=== PATIENT | female | born 1960 | race Caucasian/White ===

== ENCOUNTER → 2016-08-06 | Outpatient (CLI) | payer MEDICARE ==
[~2016-08-06] MED LIST: ABILIFY5 MG PO; AMITIZA24 MCG PO; ATIVAN0.5 MG PO; BACTRIM DS 8001 TA1 PO; BELLADONNA1 TA1 PO; BENTYL10 MG PO; CARAFATE1 G1 PO; CLINDAMYCIN HC300 MG PO; COMPAZINE SR10 MG PO; Carafate1 GM PO; D-1000 185 MG-11 TAB PO; FLAGYL500 M1 PO; FLAGYL500 MG PO; GABAPENTIN300 MG PO; HYDROCODONE BIT1 T11 PO; IMDUR SA30 MG PO; KEFLEX500 MG PO; KEFTAB500 MG PO; LAMICTAL ODT100 MG MM; LAMICTAL200 MG PO; LATU60TA PO; LOPRESSOR25 MG PO; Lopressor25 MG PO; MACROBID100 MG PO; MAGNESIA C1.75 GM/30 PO; Miralax Powder255 GM PO; NORTRIPTYLINE H10 MG PO; PERI-COLACE 501 TAB PO; PRILOSEC OTC20 MG PO; PRILOSEC20 MG PO; PRISTIQ100 MG PO; PRISTIQ50 MG PO; PYRIDIUM200 MG PO; SIMVASTATIN40 MG PO; TOPAMAX50 MG PO; TRAMADOL HCL50 MG PO; TRAMADOL50 MG PO; VICODIN ES 7501 TAB PO; ZANTAC 150150 MG PO; Zestril,Prinivil5 MG PO
[2016-08-06 11:14] LABS: BASO % 0.3 % (0.0-1.0); EOS # 0.1 10*3/uL (0.0-0.4); EOS % 0.7 % (1.0-4.0); LYMPH # 2.8 10*3/uL (1.3-4.4); LYMPH % 38.4 % (27.0-41.0); MEAN CELL VOLUME 96.1 fl (81.0-99.0); MEAN CORPUSCULAR HGB 31.2 pg (27.0-31.0); MEAN CORPUSCULAR HGB CONC 32.4 g/dl (33.0-37.0); MEAN PLATELET VOLUME 10.2 fl (9.6-12.3); MONO # 0.7 10*3/uL (0.1-1.0); MONO % 8.9 % (3.0-9.0); NEUT # 3.7 10*3/uL (2.3-7.9); NEUT % 51.4 % (47.0-73.0); PLATELET COUNT AUTOMATED 286 10*3/uL (130-400); RED BLOOD COUNT 3.85 10*6/uL (4.10-5.10); RED CELL DISTRI WIDTH 13.1 % (0-14.5); WHITE BLOOD COUNT 7.3 10*3/uL (4.8-10.8)
[2016-08-06 11:25] LABS: ALBUMIN 3.3 gm/dl (3.1-4.5); ALKALINE PHOSPHATASE 65 U/L (45-117); BILIRUBIN, DIRECT 0.1 mg/dL (0.0-0.2); BILIRUBIN, TOTAL 0.4 mg/dl (0.2-1.0); BUN 11 mg/dl (7-24); CARBON DIOXIDE 26 mmol/L (21-32); CHLORIDE 109 mmol/L (98-107); CHOLESTEROL 152 mg/dL (<200); EST GLOM FILT AFRICAN AMERICAN > 60 ml/min; GLUCOSE 96 mg/dL (65-99); HDL CHOLESTEROL 44 mg/dl (40-60); LDL CHOLESTEROL 78 mg/dL (9-159); POTASSIUM 4.6 mmol/L (3.5-5.1); SGPT/ALT 15 U/L (12-78); SODIUM 144 mmol/L (136-145); T3 UPTAKE 30 % (31-39); THYROXINE (T4) TOTAL 8.7 ug/dl (4.8-13.9); TRIGLYCERIDES 152 mg/dl (<150); VLDL CHOLESTEROL 30 mg/dL (6-40)
[2016-08-06 11:31] LABS: SGOT/AST 15 IU/L (3-35)
== END | disposition home or self-care (01) ==
LOC: LAB 10:30
PROVIDERS: Psychiatry & Neurology Neurology
DX: Z79.899 Other long term (current) drug therapy (principal)

== ENCOUNTER → 2017-02-04 | Outpatient (CLI) | payer MEDICARE ==
[2017-02-04 14:24] LABS: HEMOGLOBIN 12.7 g/dl (12.0-16.0); MEAN CORPUSCULAR HGB 32.6 pg (27.0-31.0); MEAN CORPUSCULAR HGB CONC 32.6 g/dl (33.0-37.0); MEAN PLATELET VOLUME 10.6 fl (9.6-12.3); RED BLOOD COUNT 3.9 10*6/uL (4.10-5.10); RED CELL DISTRI WIDTH 13.2 % (0-14.5); WHITE BLOOD COUNT 6.8 10*3/uL (4.8-10.8)
[2017-02-04 14:56] LABS: ALBUMIN 3.3 gm/dl (3.1-4.5); BUN 8 mg/dl (7-24); CHLORIDE 107 mmol/L (98-107); CHOLESTEROL 154 mg/dL (<200); CREATININE 1.11 mg/dL (0.55-1.02); POTASSIUM 4.2 mmol/L (3.5-5.1); SGOT/AST 12 IU/L (3-35); SGPT/ALT 14 U/L (12-78); SODIUM 139 mmol/L (136-145); TOTAL PROTEIN 7.3 gm/dL (6.4-8.2); TRIGLYCERIDES 228 mg/dl (<150); VLDL CHOLESTEROL 46 mg/dL (6-40)
[2017-02-04 15:04] LABS: ALKALINE PHOSPHATASE 83 U/L (45-117); HDL CHOLESTEROL 34 mg/dl (40-60); LDL CHOLESTEROL 74 mg/dL (9-159)
[2017-02-04 15:14] LABS: VITAMIN D, 25-HYDROXY 15.2 ng/mL (30-100)
== END | disposition home or self-care (01) ==
LOC: LAB 13:32 → MAMMO 14:00
DX: Z12.31 Encounter for screening mammogram for malignant neoplasm of breast (principal); E55.9 Vitamin D deficiency, unspecified; I10 Essential (primary) hypertension; E66.09 Other obesity due to excess calories; D50.9 Iron deficiency anemia, unspecified; K28.9 Gastrojejunal ulcer, unspecified as acute or chronic, without hemorrhage or perforation; Z98.84 Bariatric surgery status

== ENCOUNTER → 2018-10-14 | Outpatient (CLI) | payer MEDICARE ==
[~2018-10-14] MED LIST changes: +ATORVASTATIN CA20 M1 PO; +LISINOPRIL10 M1 PO; +PROTONIX40 MG PO; +VITAMIN D32000 UNI1 PO
== END | disposition home or self-care (01) ==
LOC: RESCLI 01:17
DX: E78.5 Hyperlipidemia, unspecified (principal); I10 Essential (primary) hypertension; F32.9 Major depressive disorder, single episode, unspecified; E66.01 Morbid (severe) obesity due to excess calories; R10.84 Generalized abdominal pain; R73.03 Prediabetes; E55.9 Vitamin D deficiency, unspecified; E53.8 Deficiency of other specified B group vitamins; Z71.6 Tobacco abuse counseling; Z72.0 Tobacco use; Z79.899 Other long term (current) drug therapy

== ENCOUNTER → 2018-11-30 | Day surgery (SDC) | payer MEDICARE ==
[~2018-11-30] VITALS: Ht 167.6 cm; Wt 122.0 kg
--- NOTE | ~2018-11-30 | O ---
[place], [place] OPERATIVE NOTE NAME: ENIO MERCADO UNIT #: [id number] ROOM: DOCTOR: SERGIO HEDRICK MD BIRTHDATE: [birth year] DOS: 11/30/2018 INDICATIONS: The patient has presented with multiple medical issues among which is epigastric pain, gastric bypass and loss of 120 pound, abdominal pain. FAMILY HISTORY: CODEINE. PAST SURGICAL HISTORY: Cholecystectomy, gastric bypass. SOCIAL HISTORY: Smoker, nonalcohol consumer. PROCEDURE: Today's procedure part of investigation is panendoscopy plus biopsy and colonoscopy plus piecemeal polypectomy. PREMEDICATION: Propofol. SCOPE: Olympus forward-viewing gastroscope Q10 video. REPORT: After putting the patient in left lateral position and application of lubricant to the scope, the scope was introduced. Thereafter under direct visualization, advanced through the length of esophagus without difficulty. Esophagus, cervical, thoracic distally carefully examined. Gastric pouch was entered. Gastritis was seen. Evidence of gastric bypass and suture material which is silk in the gastric pouch was noticed, ulceration at the site of the bypass and seen. The patient's duodenal bulb, second and third part within normal limit and site of the anastomosis was photographed. Air was suctioned out. The patient was extubated, tolerated the procedure well. IMPRESSION: Anastomotic site ulcer, penetrated suture material into gastric pouch, gastritis, status post gastric bypass. PLAN AND DISCUSSION: We are going to proceed with colonoscopy. COLONOSCOPY Today's procedure part of investigation is colonoscopy plus piecemeal polypectomy. PREMEDICATION: Propofol. SCOPE: Olympus forward-viewing colonoscope 10L video. REPORT: After putting the patient in left lateral position and application of lubricant to the scope, the scope was introduced. Thereafter under direct visualization, advanced through the length of colon without difficulty. Colon mucosa and vascularity carefully examined. Base of the cecum explored. A polypoid lesion on the ileocecal valve with piecemeal polypectomy removed. Air was suctioned out. The patient was extubated, tolerated the procedure well. IMPRESSION: Sessile polyp at the ileocecal valve. [place], [place] OPERATIVE NOTE NAME: ENIO MERCADO UNIT #: [id number] ROOM: DOCTOR[facility] [birth year] PLAN: High fiber diet, Protonix 40 mg daily, clinical reassessment. SERGIO HEDRICK MD CM:OPRECORD:OPERATIVE NOTE 1100 [id number] SERGIO HEDRICK MD 12/02/18 1132 DANITA WILLIAMSON.LLR
--- NOTE | ~2018-11-30 | POSTOPNOTE ---
[place], [place] POSTOPERATIVE PROGRESS NOTE NAME: ENIO MERCADO UNIT #: [id number] ROOM: DOCTOR: SERGIO HEDRICK MD BIRTHDATE: [birth year] DATE: 11/30/18 GI NOTE PREOPERATIVE DIAGNOSIS: ABDOMINAL PAIN POSTOP LOWER GI PROC/FINDINGS: LOWER GI PROCEDURE/SURGERY: COLONIC SCREENING, PIECE MEAL POLYPECTOMY, SESSILE POLYP PREOPERATIVE DIAGNOSIS: ABDMOINAL PAIN POSTOP UPPER GI PROC/FINDINGS: ANASTAMOTIC SITE ULCER, PENENTRATED SUTURE MATERIAL INTO GASTRIC POUCH, GASTRITIS, STATUS POST GASTRIC BYPASS UPPER GI PROCEDURE/SURGERY: PANENDOSCOPY PLUS BIOPSY SERGIO HEDRICK MD CM:POSTOPN 1130 1132 SERGIO HEDRICK MD 12/02/18 1135 DANITA WILLIAMSON.R
[2018-11-30 08:40] VITALS: BP 125/76
[2018-11-30 10:26] VITALS: BP 115/65
[2018-11-30 10:40] VITALS: BP 145/89
[2018-11-30 10:56] VITALS: BP 145/80
== END | disposition home or self-care (01) ==
LOC: SDC 11-25 08:45
DX: K63.5 Polyp of colon (principal); K59.00 Constipation, unspecified; K21.9 Gastro-esophageal reflux disease without esophagitis; K29.50 Unspecified chronic gastritis without bleeding; I10 Essential (primary) hypertension; F41.9 Anxiety disorder, unspecified; F32.9 Major depressive disorder, single episode, unspecified; E78.5 Hyperlipidemia, unspecified; F17.210 Nicotine dependence, cigarettes, uncomplicated; E66.01 Morbid (severe) obesity due to excess calories; Z68.41 Body mass index [BMI] 40.0-44.9, adult; Z79.899 Other long term (current) drug therapy; Z88.5 Allergy status to narcotic agent; Z98.890 Other specified postprocedural states; Z98.84 Bariatric surgery status; Z82.49 Family history of ischemic heart disease and other diseases of the circulatory system; Z83.3 Family history of diabetes mellitus; Z80.9 Family history of malignant neoplasm, unspecified

== ENCOUNTER → 2019-01-10 | Outpatient (CLI) | payer MEDICARE ==
[2019-01-10 11:39] LABS: VITAMIN D, 25-HYDROXY 26.4 ng/mL (30-100)
== END | disposition home or self-care (01) ==
LOC: LAB 10:32 → CT 11:00
PROVIDERS: Internal Medicine Nephrology
DX: E55.9 Vitamin D deficiency, unspecified (principal); E53.8 Deficiency of other specified B group vitamins; R10.31 Right lower quadrant pain; R10.32 Left lower quadrant pain; R11.0 Nausea

== ENCOUNTER → 2019-01-12 | Outpatient (CLI) | payer MEDICARE ==
[~2019-01-12] MED LIST changes: +PREDNISONE10 MG PO; +PROAIR HFA8.5 GM INH; +VIBRAMYCIN100 MG PO
== END | disposition home or self-care (01) ==
LOC: RESCLI 01:52
DX: E55.9 Vitamin D deficiency, unspecified (principal); R10.84 Generalized abdominal pain; I10 Essential (primary) hypertension; E53.8 Deficiency of other specified B group vitamins; F32.9 Major depressive disorder, single episode, unspecified; E78.5 Hyperlipidemia, unspecified; R73.03 Prediabetes; E66.01 Morbid (severe) obesity due to excess calories; Z72.0 Tobacco use; Z71.6 Tobacco abuse counseling; Z79.899 Other long term (current) drug therapy

== ENCOUNTER 2019-03-11 16:08 | Emergency (ER) | payer MEDICARE ==
[~2019-03-11] VITALS: Ht 167.6 cm; Wt 122.5 kg
--- NOTE | ~2019-03-11 | EKG ---
[place], [place] ELECTROCARDIOGRAM REPORT NAME: ENIO MERCADO UNIT #: [id number] ROOM: DOCTOR: EPIPHANY DRAFT REPORT BIRTHDATE: [birth year] [facility] Test Date: 2019-03-11 Test Time: 16:55:11 Pat Name: ENIO MERCADO Department: ER Room: Gender: F Environmental Consultant: : 1960 Requested By: IMELDA BRIDGES PA-C Order Number: [id number] Reading MD: Kelsy Robles Measurements Intervals [place] Rate: 81 P: 24 WV: 153 QRS: -1 QRSD: 72 T: 52 QT: 361 QTc: 419 Interpretive Statements Sinus rhythm Abnormal R-wave progression, early transition Compared to ECG 08/16/2018 13:58:40 Myocardial infarct finding no longer present Electronically Signed On 03-12-2019 11:19:58 PST by Kelsy Robles CM:EKGRPT:ELECTROCARDIOGRAM REPORT [id number] IMELDA BRIDGES PA-C EPIPHMATTIE DRAFT REPORT IMELDA BRIDGES PA-C
[~2019-03-11 16:08] MED LIST changes: -PREDNISONE10 MG PO; -PROAIR HFA8.5 GM INH; -VIBRAMYCIN100 MG PO
[2019-03-11 16:11] VITALS: BP 126/84
[2019-03-11 16:57] LABS: BASO % 0.2 % (0.0-1.0); EOS # 0.1 10*3/uL (0.0-0.4); EOS % 0.8 % (1.0-4.0); HEMATOCRIT 39.5 % (37.0-47.0); LYMPH # 3.3 10*3/uL (1.3-4.4); LYMPH % 39.1 % (27.0-41.0); MEAN CELL VOLUME 101.5 fl (81.0-99.0); MEAN CORPUSCULAR HGB 33.4 pg (27.0-31.0); MEAN CORPUSCULAR HGB CONC 32.9 g/dl (33.0-37.0); MEAN PLATELET VOLUME 10.1 fl (9.6-12.3); MONO # 0.6 10*3/uL (0.1-1.0); MONO % 7.1 % (3.0-9.0); NEUT # 4.4 10*3/uL (2.3-7.9); NEUT % 52.6 % (47.0-73.0); PLATELET COUNT AUTOMATED 283 10*3/uL (130-400); RED BLOOD COUNT 3.89 10*6/uL (4.10-5.10); RED CELL DISTRI WIDTH 11.9 % (0-14.5); WHITE BLOOD COUNT 8.4 10*3/uL (4.8-10.8)
[2019-03-11 17:08] LABS: ACT PARTIAL THROMBO TIME 25.6 SECONDS (20.0-32.1); INTERNATIONAL NORM RATIO 0.9 (2.0-3.5)
[2019-03-11 17:16] LABS: ALBUMIN 3.2 gm/dl (3.1-4.5); ALKALINE PHOSPHATASE 80 U/L (45-117); BUN 12 mg/dl (7-24); CHLORIDE 110 mmol/L (98-107); CREATININE 1.28 mg/dL (0.55-1.02); POTASSIUM 3.8 mmol/L (3.5-5.1); SGOT/AST 12 IU/L (3-35); SGPT/ALT 20 U/L (12-78); SODIUM 139 mmol/L (136-145); TOTAL PROTEIN 7.1 gm/dL (6.4-8.2)
[2019-03-11 17:17] LABS: TROPONIN I < 0.015 ng/ml (<0.045)
[2019-03-11 17:31] LABS: BILIRUBIN 1+ (NEGATIVE); BLOOD NEGATIVE (NEGATIVE); CLARITY SL CLOUDY (CLEAR); COLOR YELLOW (YELLOW); GLUCOSE NEGATIVE (NEGATIVE); KETONE TRACE (NEGATIVE); LEUKO ESTERASE TRACE (NEGATIVE); NITRITE NEGATIVE (NEGATIVE); SPECIFIC GRAVITY >= 1.030 (1.005-1.030)
[2019-03-11] MEDS ORDERED: PREDNISONE10 MG PO (17:39)
[2019-03-11] MEDS ORDERED: VIBRAMYCIN100 MG PO (17:39)
[2019-03-11] MEDS ORDERED: PROAIR HFA8.5 GM INH (17:40)
[2019-03-11 18:11] LABS: BACTERIA 3+; EPITHELIAL CELLS TNTC
== END 2019-03-11 17:53 | disposition home or self-care (01) ==
LOC: ED 16:08
PROVIDERS: Physician Assistant
DX: J40 Bronchitis, not specified as acute or chronic (principal); I10 Essential (primary) hypertension; K21.9 Gastro-esophageal reflux disease without esophagitis; F17.200 Nicotine dependence, unspecified, uncomplicated; Z91.041 Radiographic dye allergy status; Z88.0 Allergy status to penicillin; Z88.5 Allergy status to narcotic agent; Z79.899 Other long term (current) drug therapy

== ENCOUNTER 2019-08-06 12:59 | Inpatient (IN) | payer MEDICARE ==
[~2019-08-06] VITALS: Ht 170.1 cm; Wt 117.7 kg
[~2019-08-06 12:59] MED LIST changes: +PREDNISONE10 MG PO; +PROAIR HFA8.5 GM INH; +VIBRAMYCIN100 MG PO
[2019-08-06 13:17] VITALS: BP 117/61
[2019-08-06 13:45] LABS: BASO % 0.3 % (0.0-1.0); HEMATOCRIT 40.7 % (37.0-47.0); LYMPH % 33.6 % (27.0-41.0); MEAN CELL VOLUME 96.9 fl (81.0-99.0); MEAN CORPUSCULAR HGB 32.6 pg (27.0-31.0); MEAN CORPUSCULAR HGB CONC 33.7 g/dl (33.0-37.0); MEAN PLATELET VOLUME 10.5 fl (9.6-12.3); MONO # 0.7 10*3/uL (0.1-1.0); MONO % 12.2 % (3.0-9.0); NEUT # 3.2 10*3/uL (2.3-7.9); NEUT % 53.6 % (47.0-73.0); PLATELET COUNT AUTOMATED 207 10*3/uL (130-400); WHITE BLOOD COUNT 5.9 10*3/uL (4.8-10.8)
[2019-08-06 13:55] LABS: ACT PARTIAL THROMBO TIME 27.8 SECONDS (20.0-32.1)
[2019-08-06 14:02] LABS: ALBUMIN 3.2 gm/dl (3.1-4.5); ALKALINE PHOSPHATASE 90 U/L (45-117); BUN 11 mg/dl (7-24); CHLORIDE 106 mmol/L (98-107); CREATININE 1.22 mg/dL (0.55-1.02); POTASSIUM 3.9 mmol/L (3.5-5.1); SGOT/AST 28 IU/L (3-35); SGPT/ALT 36 U/L (12-78); SODIUM 134 mmol/L (136-145)
[2019-08-06 14:07] LABS: TROPONIN I < 0.015 ng/ml (<0.045)
[2019-08-06 16:40] VITALS: BP 110/68
[2019-08-06 20:00] VITALS: BP 111/71
--- NOTE | 2019-08-06 21:40 | NUR ---
ORTHOS NEGATIVE, BUT PT IS DIZZY. PO TYLENOL GIVEN PER PRN ORDER FOR C/O HEAD & NECK PAIN RATED 8/10. WILL MONITOR EFFECTIVENESS. CALL LIGHT IN REACH.
--- NOTE | 2019-08-06 21:57 | NUR ---
AWARE OF ORTHOS NEGATIVE BUT PT C/O DIZZINESS. NO NEW ORDERS AT PRESENT TIME.
--- NOTE | 2019-08-06 22:57 | NUR ---
DEICER KIT ASSEMBLER CALLED QUESTIONING PATIENT'S ALLERGY TO IVP DYE. PER PT, REACTION TO IVP DYE WAS NAUSEA/DIZZINESS/SWEATING. DEICER KIT ASSEMBLER AWARE SOLUMEDROL & BENADRYL TO BE GIVEN PRIOR TO TEST SCHEDULED FOR 1100.
[2019-08-07] VITALS: BP 107/65
--- NOTE | 2019-08-07 04:47 | NUR ---
PT MEDICATED WITH PO TYLENOL FOR C/O PAIN IN NECK/SHOULDERS RATED 6/10. WILL MONITOR EFFECTIVENESS. CALL LIGHT IN REACH.
[2019-08-07 06:04] LABS: BASO % 0.6 % (0.0-1.0); HEMATOCRIT 41.4 % (37.0-47.0); LYMPH # 1.3 10*3/uL (1.3-4.4); LYMPH % 37.5 % (27.0-41.0); MEAN CELL VOLUME 97.4 fl (81.0-99.0); MEAN CORPUSCULAR HGB 32.7 pg (27.0-31.0); MEAN CORPUSCULAR HGB CONC 33.6 g/dl (33.0-37.0); MEAN PLATELET VOLUME 11.1 fl (9.6-12.3); MONO # 0.2 10*3/uL (0.1-1.0); MONO % 4.6 % (3.0-9.0); PLATELET COUNT AUTOMATED 201 10*3/uL (130-400); RED BLOOD COUNT 4.25 10*6/uL (4.10-5.10); RED CELL DISTRI WIDTH 12.8 % (0-14.5); WHITE BLOOD COUNT 3.5 10*3/uL (4.8-10.8)
[2019-08-07 06:13] LABS: CREATININE 1.27 mg/dL (0.55-1.02); POTASSIUM 4.1 mmol/L (3.5-5.1)
[2019-08-07 06:20] LABS: THYROID STIM HORMONE (HS) 0.61 uIU/ml (0.358-4.75)
[2019-08-07 06:34] LABS: ACT PARTIAL THROMBO TIME 30.5 SECONDS (20.0-32.1)
--- NOTE | 2019-08-07 07:20 | NUR ---
REPORT RECEIVED FROM OUTREACH ANALYST NURSE. PT SLEEPING AT THIS TIME. RESPIRATIONS EASY AND UNLABORED. CALL LIGHT IN REACH
--- NOTE | 2019-08-07 09:00 | NUR ---
Machinist Class B in to talk to patient. Patient states lives at home with daughter. There are none steps in the home. Physician: [facility] Home health services: none Patient's level of ADLs: INDEPENDENT Patient has working utilities: all working DME: none Follow-up physician's appointment after d/c: will be made by [facility] nurse director upon discharge Does patient want to access PORTAL?: no Discharge plan discussed with patient, she states she lives at home with her daughter and daughter's family, she states she is independent in adls and ambulation, discussed with her a recent fall at home and a stay at a short term residential for 5 days of rehab prior to returning home, patient declines, stated she would be returning home,, also discussed with her VNA and educated her on their services, patient stated she didn't feel she needed any home services at this time, case management will follow for any home needs. RAJ VIRK
[2019-08-07 12:00] VITALS: BP 129/73
--- NOTE | 2019-08-07 14:40 | NUR ---
Discharge instructions reviewed with patient/family. Patient receptive and verbalizes understanding. Follow-up care arranged. Written instructions given to patient/family. CJ PHILLIP
== END 2019-08-07 14:45 | disposition home or self-care (01) | DRG 312 ==
LOC: ED 12:59 → EDHOLD 15:06 → 4E 15:06
PROVIDERS: Emergency Medicine; ADMIT Internal Medicine
DX: I95.1 Orthostatic hypotension (principal); N17.0 Acute kidney failure with tubular necrosis; E87.1 Hypo-osmolality and hyponatremia; E44.1 Mild protein-calorie malnutrition; Z68.41 Body mass index [BMI] 40.0-44.9, adult; I10 Essential (primary) hypertension; K21.9 Gastro-esophageal reflux disease without esophagitis; F32.9 Major depressive disorder, single episode, unspecified; E78.00 Pure hypercholesterolemia, unspecified; F17.210 Nicotine dependence, cigarettes, uncomplicated; R79.89 Other specified abnormal findings of blood chemistry; Z87.11 Personal history of peptic ulcer disease; Z98.84 Bariatric surgery status; Z88.8 Allergy status to other drugs, medicaments and biological substances; Z88.0 Allergy status to penicillin; Z88.5 Allergy status to narcotic agent; Z79.899 Other long term (current) drug therapy; Z82.49 Family history of ischemic heart disease and other diseases of the circulatory system; Z98.51 Tubal ligation status; Z80.9 Family history of malignant neoplasm, unspecified

== ENCOUNTER 2019-08-10 17:04 | Emergency (ER) | payer MEDICARE ==
[~2019-08-10] VITALS: Ht 170.1 cm; Wt 119.3 kg
[2019-08-10 17:17] VITALS: BP 112/64
[2019-08-10] MEDS ORDERED: CEPHALEXIN500 M1 PO (17:55)
[2019-08-10] MEDS ORDERED: TYLENOL325 M1 PO (17:55)
== END 2019-08-10 18:19 | disposition home or self-care (01) ==
LOC: ED 17:04
DX: I80.02 Phlebitis and thrombophlebitis of superficial vessels of left lower extremity (principal); F32.9 Major depressive disorder, single episode, unspecified; F41.9 Anxiety disorder, unspecified; K21.9 Gastro-esophageal reflux disease without esophagitis; E78.00 Pure hypercholesterolemia, unspecified; F17.200 Nicotine dependence, unspecified, uncomplicated; Z88.0 Allergy status to penicillin; Z88.5 Allergy status to narcotic agent; Z91.041 Radiographic dye allergy status; Z79.899 Other long term (current) drug therapy; Z90.49 Acquired absence of other specified parts of digestive tract

== ENCOUNTER 2019-10-28 19:22 | Emergency (ER) | payer MEDICARE ==
[~2019-10-28] VITALS: Ht 167.6 cm; Wt 126.1 kg
[~2019-10-28 19:22] MED LIST changes: +CEPHALEXIN500 M1 PO; +TYLENOL325 M1 PO
[2019-10-28 19:29] VITALS: BP 150/93
[2019-10-28 19:59] LABS: BASO % 0.3 % (0.0-1.0); EOS # 0.1 10*3/uL (0.0-0.4); EOS % 0.9 % (1.0-4.0); HEMATOCRIT 38.1 % (37.0-47.0); LYMPH # 4.1 10*3/uL (1.3-4.4); LYMPH % 45.9 % (27.0-41.0); MEAN CELL VOLUME 99.2 fl (81.0-99.0); MEAN CORPUSCULAR HGB 32.6 pg (27.0-31.0); MEAN CORPUSCULAR HGB CONC 32.8 g/dl (33.0-37.0); MEAN PLATELET VOLUME 10.2 fl (9.6-12.3); MONO # 0.7 10*3/uL (0.1-1.0); MONO % 7.8 % (3.0-9.0); NEUT % 44.8 % (47.0-73.0); PLATELET COUNT AUTOMATED 305 10*3/uL (130-400); RED BLOOD COUNT 3.84 10*6/uL (4.10-5.10); RED CELL DISTRI WIDTH 12.7 % (0-14.5)
[2019-10-28 20:02] LABS: BILIRUBIN 1+ (NEGATIVE); CLARITY SL CLOUDY (CLEAR); COLOR YELLOW (YELLOW); GLUCOSE NEGATIVE (NEGATIVE)
[2019-10-28 20:03] LABS: BLOOD TRACE-INTACT (NEGATIVE); KETONE NEGATIVE (NEGATIVE); LEUKO ESTERASE NEGATIVE (NEGATIVE); NITRITE NEGATIVE (NEGATIVE); UROBILINOGEN 0.2 E.U./dl (0.2-1.0)
[2019-10-28 20:04] LABS: BACTERIA 1+; EPITHELIAL CELLS 41-50; MUCOUS 4+
[2019-10-28 20:14] LABS: ALBUMIN 3.2 gm/dl (3.1-4.5); ALKALINE PHOSPHATASE 86 U/L (45-117); BUN 13 mg/dl (7-24); CHLORIDE 111 mmol/L (98-107); CREATININE 1.09 mg/dL (0.55-1.02); LIPASE 70 U/L (73-393); POTASSIUM 4.1 mmol/L (3.5-5.1); SGOT/AST 15 IU/L (3-35); SGPT/ALT 18 U/L (12-78); SODIUM 141 mmol/L (136-145); TOTAL PROTEIN 7.1 gm/dL (6.4-8.2)
[2019-10-28] MEDS ORDERED: MACROBID100 M1 PO (23:47)
[2019-10-28] MEDS ORDERED: Motrin,Rufen400 MG PO (23:59)
== END 2019-10-29 00:16 | disposition home or self-care (01) ==
LOC: ED 19:22
PROVIDERS: Emergency Medicine Emergency Medical Services
DX: E86.0 Dehydration (principal); R30.0 Dysuria; R82.71 Bacteriuria; K21.9 Gastro-esophageal reflux disease without esophagitis; F32.9 Major depressive disorder, single episode, unspecified; Z88.0 Allergy status to penicillin; Z88.5 Allergy status to narcotic agent; Z91.041 Radiographic dye allergy status; Z79.899 Other long term (current) drug therapy

== ENCOUNTER → 2020-03-20 | Outpatient (CLI) | payer MEDICARE ==
[~2020-03-20] MED LIST changes: +MACROBID100 M1 PO; +Motrin,Rufen400 MG PO
== END | disposition home or self-care (01) ==
LOC: COVID19 12:51
PROVIDERS: ATTEND Internal Medicine
DX: Z20.828 Contact with and (suspected) exposure to other viral communicable diseases (principal)

== ENCOUNTER → 2020-07-12 | Outpatient (CLI) | payer MEDICARE | END | disposition home or self-care (01) | LOC: RESCLI 00:19 | PROVIDERS: ATTEND Internal Medicine | DX: I10 Essential (primary) hypertension (principal); E78.2 Mixed hyperlipidemia; E55.9 Vitamin D deficiency, unspecified; E66.09 Other obesity due to excess calories; K21.00 Gastro-esophageal reflux disease with esophagitis, without bleeding; F33.9 Major depressive disorder, recurrent, unspecified; F17.200 Nicotine dependence, unspecified, uncomplicated; Z12.4 Encounter for screening for malignant neoplasm of cervix; Z12.31 Encounter for screening mammogram for malignant neoplasm of breast; Z12.2 Encounter for screening for malignant neoplasm of respiratory organs; Z79.82 Long term (current) use of aspirin; Z68.35 Body mass index [BMI] 35.0-35.9, adult; Z79.899 Other long term (current) drug therapy; Z79.84 Long term (current) use of oral hypoglycemic drugs; Z88.0 Allergy status to penicillin; Z88.8 Allergy status to other drugs, medicaments and biological substances ==

== ENCOUNTER → 2020-07-13 | Outpatient (CLI) | payer MEDICARE ==
[2020-07-13 07:13] LABS: BASO % 0.4 % (0.0-1.0); EOS # 0.1 10*3/uL (0.0-0.4); EOS % 1.2 % (1.0-4.0); HEMATOCRIT 39.1 % (37.0-47.0); LYMPH # 2.6 10*3/uL (1.3-4.4); LYMPH % 37.5 % (27.0-41.0); MEAN CELL VOLUME 99.7 fl (81.0-99.0); MEAN CORPUSCULAR HGB 32.7 pg (27.0-31.0); MEAN CORPUSCULAR HGB CONC 32.7 g/dl (33.0-37.0); MEAN PLATELET VOLUME 10.5 fl (9.6-12.3); MONO # 0.7 10*3/uL (0.1-1.0); MONO % 10.6 % (3.0-9.0); NEUT # 3.4 10*3/uL (2.3-7.9); NEUT % 49.9 % (47.0-73.0); PLATELET COUNT AUTOMATED 305 10*3/uL (130-400); RED BLOOD COUNT 3.92 10*6/uL (4.10-5.10); RED CELL DISTRI WIDTH 12.8 % (0-14.5); WHITE BLOOD COUNT 6.8 10*3/uL (4.8-10.8)
[2020-07-13 07:30] LABS: ALBUMIN 3.1 gm/dl (3.1-4.5); ALKALINE PHOSPHATASE 76 U/L (45-117); BUN 11 mg/dl (7-24); CHLORIDE 111 mmol/L (98-107); CHOLESTEROL 198 mg/dL (<200); CREATININE 0.98 mg/dL (0.55-1.02); HDL CHOLESTEROL 33 mg/dl (40-60); LDL CHOLESTEROL 118 mg/dL (9-159); POTASSIUM 3.8 mmol/L (3.5-5.1); SGOT/AST 13 IU/L (3-35); SGPT/ALT 19 U/L (12-78); SODIUM 142 mmol/L (136-145); TOTAL PROTEIN 7.2 gm/dL (6.4-8.2); TRIGLYCERIDES 233 mg/dl (<150); VLDL CHOLESTEROL 47 mg/dL (6-40)
== END | disposition home or self-care (01) ==
LOC: LAB 06:11
PROVIDERS: ATTEND Hospitalist
DX: E66.09 Other obesity due to excess calories (principal); E55.9 Vitamin D deficiency, unspecified; Z79.899 Other long term (current) drug therapy

== ENCOUNTER → 2020-07-30 | Outpatient (CLI) | payer MEDICARE | END | disposition home or self-care (01) | LOC: CARD 11:40 | PROVIDERS: ATTEND Hospitalist | DX: I51.7 Cardiomegaly (principal); G47.33 Obstructive sleep apnea (adult) (pediatric); Z12.2 Encounter for screening for malignant neoplasm of respiratory organs; Z12.31 Encounter for screening mammogram for malignant neoplasm of breast ==

== ENCOUNTER → 2020-08-06 | Outpatient (CLI) | payer MEDICARE | END | disposition home or self-care (01) | LOC: MAMMO 07-30 14:00 | PROVIDERS: ATTEND Internal Medicine | DX: Z12.31 Encounter for screening mammogram for malignant neoplasm of breast (principal); G47.33 Obstructive sleep apnea (adult) (pediatric); Z12.2 Encounter for screening for malignant neoplasm of respiratory organs ==

== ENCOUNTER → 2020-08-14 | Outpatient (CLI) | payer MEDICARE | END | disposition home or self-care (01) | LOC: RESCLI 01:25 | PROVIDERS: ATTEND Internal Medicine Nephrology | DX: Z11.59 Encounter for screening for other viral diseases (principal); E55.9 Vitamin D deficiency, unspecified; F33.9 Major depressive disorder, recurrent, unspecified; E78.2 Mixed hyperlipidemia; I10 Essential (primary) hypertension; K21.00 Gastro-esophageal reflux disease with esophagitis, without bleeding; Z79.82 Long term (current) use of aspirin; Z79.899 Other long term (current) drug therapy; Z98.890 Other specified postprocedural states; Z90.49 Acquired absence of other specified parts of digestive tract; Z98.51 Tubal ligation status; Z88.8 Allergy status to other drugs, medicaments and biological substances; Z88.0 Allergy status to penicillin ==

== ENCOUNTER → 2020-12-31 | Outpatient (CLI) | payer MEDICARE | END | disposition home or self-care (01) | LOC: COVID19 16:41 | PROVIDERS: ATTEND Hospitalist | DX: Z11.52 Encounter for screening for COVID-19 (principal) ==

== ENCOUNTER → 2020-12-31 | Outpatient (CLI) | payer MEDICARE | END | disposition home or self-care (01) | LOC: RESCLI 01:50 | PROVIDERS: ATTEND Internal Medicine | DX: M79.18 Myalgia, other site (principal); R06.00 Dyspnea, unspecified; E55.9 Vitamin D deficiency, unspecified; K21.00 Gastro-esophageal reflux disease with esophagitis, without bleeding; I10 Essential (primary) hypertension; F33.9 Major depressive disorder, recurrent, unspecified; E78.2 Mixed hyperlipidemia; F17.210 Nicotine dependence, cigarettes, uncomplicated; G47.33 Obstructive sleep apnea (adult) (pediatric); Z20.822 Contact with and (suspected) exposure to COVID-19; Z79.82 Long term (current) use of aspirin; Z79.899 Other long term (current) drug therapy; Z88.8 Allergy status to other drugs, medicaments and biological substances ==

== ENCOUNTER → 2021-04-28 | Outpatient (CLI) | payer MEDICARE | END | disposition home or self-care (01) | LOC: COVID19 15:33 | PROVIDERS: ATTEND Internal Medicine | DX: U07.1 COVID-19 (principal) ==

== ENCOUNTER → 2021-07-29 | Outpatient (CLI) | payer MEDICARE, MEDICAID ==
[~2021-07-29] MED LIST changes: +ASPIRIN ADULT L81 M1 PO; +GOOD NEIGHBOR M25 M1 PO
== END | disposition home or self-care (01) ==
LOC: RESCLI 00:37
PROVIDERS: ATTEND Internal Medicine
DX: Z78.9 Other specified health status (principal); Z72.0 Tobacco use; Z12.31 Encounter for screening mammogram for malignant neoplasm of breast; E55.9 Vitamin D deficiency, unspecified; K21.00 Gastro-esophageal reflux disease with esophagitis, without bleeding; I10 Essential (primary) hypertension; E78.2 Mixed hyperlipidemia; F33.9 Major depressive disorder, recurrent, unspecified; Z12.2 Encounter for screening for malignant neoplasm of respiratory organs; Z11.59 Encounter for screening for other viral diseases; Z79.899 Other long term (current) drug therapy; Z79.82 Long term (current) use of aspirin; Z88.0 Allergy status to penicillin; Z88.8 Allergy status to other drugs, medicaments and biological substances

== ENCOUNTER → 2021-08-26 | Outpatient (CLI) | payer MEDICARE, MEDICAID | END | disposition home or self-care (01) | LOC: MAMMO 08-05 15:30 | PROVIDERS: ATTEND Internal Medicine | DX: Z12.31 Encounter for screening mammogram for malignant neoplasm of breast (principal); N64.59 Other signs and symptoms in breast ==

== ENCOUNTER → 2021-11-13 | Outpatient (CLI) | payer MEDICARE, MEDICAID | END | disposition home or self-care (01) | LOC: RESCLI 13:33 | PROVIDERS: ATTEND Emergency Medicine | DX: F33.9 Major depressive disorder, recurrent, unspecified (principal); K21.00 Gastro-esophageal reflux disease with esophagitis, without bleeding; E55.9 Vitamin D deficiency, unspecified; I10 Essential (primary) hypertension; G47.33 Obstructive sleep apnea (adult) (pediatric); Z12.31 Encounter for screening mammogram for malignant neoplasm of breast; Z87.891 Personal history of nicotine dependence; Z79.899 Other long term (current) drug therapy; Z88.8 Allergy status to other drugs, medicaments and biological substances; Z88.0 Allergy status to penicillin; Z79.82 Long term (current) use of aspirin ==

== ENCOUNTER → 2022-02-18 | Outpatient (CLI) | payer MEDICARE, MEDICAID ==
[2022-02-18 15:39] LABS: BASO % 0.4 % (0.0-1.0); EOS # 0.1 10*3/uL (0.0-0.4); HEMATOCRIT 40.6 % (37.0-47.0); LYMPH # 3.4 10*3/uL (1.3-4.4); LYMPH % 41.5 % (27.0-41.0); MEAN CELL VOLUME 101.2 fl (81.0-99.0); MEAN CORPUSCULAR HGB 33.4 pg (27.0-31.0); MEAN PLATELET VOLUME 10.1 fl (9.6-12.3); MONO # 0.6 10*3/uL (0.1-1.0); MONO % 7.8 % (3.0-9.0); NEUT % 48.9 % (47.0-73.0); PLATELET COUNT AUTOMATED 315 10*3/uL (130-400); RED BLOOD COUNT 4.01 10*6/uL (4.10-5.10); WHITE BLOOD COUNT 8.1 10*3/uL (4.8-10.8)
[2022-02-18 15:58] LABS: CREATININE 1.3 mg/dL (0.55-1.02); POTASSIUM 4.2 mmol/L (3.5-5.1); TOTAL PROTEIN 7.7 gm/dL (6.4-8.2)
== END | disposition home or self-care (01) ==
LOC: RESCLI 13:34
PROVIDERS: Internal Medicine; ATTEND Internal Medicine
DX: R06.02 Shortness of breath (principal); E55.9 Vitamin D deficiency, unspecified; K21.00 Gastro-esophageal reflux disease with esophagitis, without bleeding; I10 Essential (primary) hypertension; E78.2 Mixed hyperlipidemia; F33.9 Major depressive disorder, recurrent, unspecified; F41.9 Anxiety disorder, unspecified; Z98.890 Other specified postprocedural states; Z90.49 Acquired absence of other specified parts of digestive tract; Z82.49 Family history of ischemic heart disease and other diseases of the circulatory system; Z87.891 Personal history of nicotine dependence; Z88.5 Allergy status to narcotic agent; Z88.8 Allergy status to other drugs, medicaments and biological substances; Z79.82 Long term (current) use of aspirin; Z79.899 Other long term (current) drug therapy

== ENCOUNTER → 2022-02-20 | Outpatient (CLI) | payer MEDICARE, MEDICAID | LOC: RAD 11:23 | PROVIDERS: ATTEND Internal Medicine | DX: R06.02 Shortness of breath (principal) ==

== ENCOUNTER → 2022-03-09 | Outpatient (CLI) | payer MEDICARE, MEDICAID ==
[~2022-03-09] MED LIST changes: +ATORVASTATIN CA40 M1 PO; +BUSPAR5 MG PO; +DICYCLOMINE HCL10 MG PO; +IRON325 M1 PO; +METOPROLOL SUCC50 M1 PO
== END | disposition home or self-care (01) ==
LOC: RESCLI 00:52
PROVIDERS: ATTEND Internal Medicine
DX: I10 Essential (primary) hypertension (principal); E55.9 Vitamin D deficiency, unspecified; E78.2 Mixed hyperlipidemia; K21.00 Gastro-esophageal reflux disease with esophagitis, without bleeding; F33.9 Major depressive disorder, recurrent, unspecified; F41.9 Anxiety disorder, unspecified; G47.30 Sleep apnea, unspecified; E53.8 Deficiency of other specified B group vitamins; F17.200 Nicotine dependence, unspecified, uncomplicated; Z90.49 Acquired absence of other specified parts of digestive tract; Z98.890 Other specified postprocedural states; Z82.49 Family history of ischemic heart disease and other diseases of the circulatory system; Z88.5 Allergy status to narcotic agent; Z88.0 Allergy status to penicillin; Z88.8 Allergy status to other drugs, medicaments and biological substances; Z79.82 Long term (current) use of aspirin; Z79.899 Other long term (current) drug therapy

== ENCOUNTER → 2022-09-28 | Outpatient (CLI) | payer MEDICARE, MEDICAID | END | disposition home or self-care (01) | LOC: RESCLI 02:30 | PROVIDERS: ATTEND Internal Medicine | DX: R21 Rash and other nonspecific skin eruption (principal); Z12.31 Encounter for screening mammogram for malignant neoplasm of breast; I10 Essential (primary) hypertension; E55.9 Vitamin D deficiency, unspecified; D50.9 Iron deficiency anemia, unspecified; K28.9 Gastrojejunal ulcer, unspecified as acute or chronic, without hemorrhage or perforation; F41.9 Anxiety disorder, unspecified; E78.00 Pure hypercholesterolemia, unspecified; E78.5 Hyperlipidemia, unspecified; F17.210 Nicotine dependence, cigarettes, uncomplicated; F33.9 Major depressive disorder, recurrent, unspecified; Z88.5 Allergy status to narcotic agent; Z88.8 Allergy status to other drugs, medicaments and biological substances; Z98.890 Other specified postprocedural states; Z82.49 Family history of ischemic heart disease and other diseases of the circulatory system; Z79.899 Other long term (current) drug therapy ==

== ENCOUNTER 2023-08-14 16:59 | Emergency (ER) | payer MEDICARE, MEDICAID ==
[~2023-08-14] VITALS: Ht 167.6 cm; Wt 126.6 kg
[2023-08-14 17:10] VITALS: BP 154/86
[2023-08-14] MEDS ORDERED: hydrOXYzine pamoate 25 MG CAP PO ONE (17:15)
[2023-08-14 17:36] LABS: BASO % 0.3 % (0.0-1.0); EOS # 0.1 10*3/uL (0.0-0.4); EOS % 1.1 % (1.0-4.0); HEMATOCRIT 39.8 % (37.0-47.0); LYMPH # 2.5 10*3/uL (1.3-4.4); LYMPH % 38.5 % (27.0-41.0); MEAN CELL VOLUME 98.3 fl (81.0-99.0); MEAN CORPUSCULAR HGB 32.3 pg (27.0-31.0); MEAN CORPUSCULAR HGB CONC 32.9 g/dl (33.0-37.0); MEAN PLATELET VOLUME 10.5 fl (9.6-12.3); MONO # 0.6 10*3/uL (0.1-1.0); MONO % 9.1 % (3.0-9.0); NEUT # 3.3 10*3/uL (2.3-7.9); NEUT % 50.8 % (47.0-73.0); PLATELET COUNT AUTOMATED 261 10*3/uL (130-400); RED BLOOD COUNT 4.05 10*6/uL (4.10-5.10); RED CELL DISTRI WIDTH 12.3 % (0-14.5); WHITE BLOOD COUNT 6.5 10*3/uL (4.8-10.8)
[2023-08-14 17:52] LABS: ALKALINE PHOSPHATASE 80 U/L (46-116); BUN 12 mg/dl (9-23); CHLORIDE 109 mmol/L (98-107); POTASSIUM 3.9 mmol/L (3.4-5.1); SGPT/ALT 18 U/L (5-49); TOTAL PROTEIN 7.1 gm/dL (6.0-8.0)
[2023-08-14] MEDS ORDERED: LORazepam 1 MG TAB PO ONE (18:05)
[2023-08-14] MEDS ORDERED: ANTIVERT25 M2 PO (18:12)
== END 2023-08-14 18:15 | disposition home or self-care (01) ==
LOC: ED 16:59
PROVIDERS: Internal Medicine
DX: F41.9 Anxiety disorder, unspecified (principal); R42 Dizziness and giddiness; F32.A Depression, unspecified; I10 Essential (primary) hypertension; K21.9 Gastro-esophageal reflux disease without esophagitis; Z91.041 Radiographic dye allergy status; Z88.0 Allergy status to penicillin; Z88.5 Allergy status to narcotic agent; Z98.890 Other specified postprocedural states; Z90.49 Acquired absence of other specified parts of digestive tract; Z98.51 Tubal ligation status; F17.200 Nicotine dependence, unspecified, uncomplicated

== ENCOUNTER 2024-03-16 11:12 | Emergency (ER) | payer MEDICARE, MEDICAID ==
[~2024-03-16] VITALS: Ht 167.6 cm; Wt 108.9 kg
[~2024-03-16 11:12] MED LIST changes: +ANTIVERT25 M2 PO
[2024-03-16 11:18] VITALS: BP 130/103
[2024-03-16] MEDS ORDERED: Tdap Vaccine 0.5 ML SYR (Adult Vaccine) IM ONE (11:30)
[2024-03-16] MEDS ORDERED: ACETAMINOPHEN 325 MG TAB PO ONE (12:25)
[2024-03-16] MEDS ORDERED: CLINDAMYCIN HC300 MG PO (13:20)
== END 2024-03-16 11:52 | disposition home or self-care (01) ==
LOC: ED 11:12
DX: S61.051A Open bite of right thumb without damage to nail, initial encounter (principal); F41.9 Anxiety disorder, unspecified; F32.A Depression, unspecified; I10 Essential (primary) hypertension; K21.9 Gastro-esophageal reflux disease without esophagitis; F17.200 Nicotine dependence, unspecified, uncomplicated; Z91.041 Radiographic dye allergy status; Z88.0 Allergy status to penicillin; Z88.5 Allergy status to narcotic agent; Z90.49 Acquired absence of other specified parts of digestive tract; Z98.890 Other specified postprocedural states; W54.0XXA Bitten by dog, initial encounter; Y93.89 Activity, other specified; Y92.89 Other specified places as the place of occurrence of the external cause; Y99.8 Other external cause status